=== PATIENT | female | born 1975 | race Caucasian/White ===

== ENCOUNTER 2021-05-02 12:46 | Emergency (ER) | payer OTHER, SELFPAY ==
[~2021-05-02] VITALS: Ht 157.5 cm; Wt 94.8 kg
[~2021-05-02 12:46] MED LIST: APIX5TAB PO
[2021-05-02 12:54] VITALS: BP 129/85
--- NOTE | 2021-05-02 13:12 | NUR ---
US AT BEDSIDE
--- NOTE | 2021-05-02 13:40 | NUR ---
RECEIVED 45 Y/O FEMALE IN BED 6, C/O DIZZINESS WITH VAGINAL BLEEDING, LARGE CLOTS WITH CRAMPING 5/10 X5DAYS. PT STATES SHE IS FEELING INCREASINGLY DIZZY AND WEAK. DENIES FEVER/CHILLS. PMH: ASTHMA, BLOOD CLOTS RX: JOHNATHAN JOHNSTON
[2021-05-02 14:03] LABS: BASOPHILS # (AUTO) 0.1 K/uL (0.00-0.22); BASOPHILS % (AUTO) 1.1 % (0.0-2.0); EOSINOPHILS # (AUTO) 0.5 K/uL (0-0.4); EOSINOPHILS % (AUTO) 5.7 % (0.0-4.0); HEMOGLOBIN 10.8 g/dL (12.0-16.0); LYMPHOCYTES # (AUTO) 2.7 K/uL (2.5-16.5); LYMPHOCYTES % (AUTO) 30.1 % (20.5-51.1); MEAN CORPUSCULAR HEMOGLOBIN 25 pg (27-31); MEAN CORPUSCULAR HGB CONC 33 g/dL (33-37); MEAN CORPUSCULAR VOLUME 75.4 fL (80-94); MONOCYTES # (AUTO) 0.6 K/uL (0.8-1.0); MONOCYTES % (AUTO) 6.3 % (1.7-9.3); NEUTROPHILS # (AUTO) 5.1 K/uL (1.8-7.7); NEUTROPHILS % (AUTO) 56.8 % (42.2-75.2); PLATELET COUNT (AUTO) 423 K/uL (140-450); RED BLOOD CELL COUNT(AUTO) 4.37 MIL/uL (4.20-5.40); RED CELL DISTRIBUTION WIDTH 15.8 % (11.6-13.7)
[2021-05-02 14:26] LABS: ALBUMIN 3.4 g/dL (3.4-5.0); ANION GAP 13.2 (8-16); CARBON DIOXIDE 24.7 mmol/L (21-32); CREATININE 0.7 mg/dL (0.6-1.3); POTASSIUM 3.9 mmol/L (3.5-5.1); TOTAL BILIRUBIN 0.3 mg/dL (0.0-1.0)
[2021-05-02 14:33] LABS: PROTHROMBIN TIME 9.8 secs (10.8-13.4)
--- NOTE | 2021-05-02 15:08 | NUR ---
EVALUATING PATIENT AT BEDSIDE
--- NOTE | 2021-05-02 15:18 | NUR ---
PELVIC SETUP AT BEDSIDE
--- NOTE | 2021-05-02 15:55 | NUR ---
CHAPERONED DR. BIRD DURING PELVIC EXAM.
--- NOTE | 2021-05-02 16:05 | NUR ---
OB STUDENTS FROM DR BOX OFFICE AT BEDSIDE FOR PT EVAL.
[2021-05-02 16:40] VITALS: BP 131/91
--- NOTE | 2021-05-02 16:40 | NUR ---
Patient discharged with v/s stable. Written and verbal after care instructions given and explained. Patient verbalized understanding. Ambulatory with steady gait. All questions addressed prior to discharge. Advised to follow up with PMD.
== END 2021-05-02 16:40 | disposition home or self-care (01) ==
LOC: MED 12:46
DX: N93.8 Other specified abnormal uterine and vaginal bleeding (principal); T50.995A Adverse effect of other drugs, medicaments and biological substances, initial encounter; R42 Dizziness and giddiness; J45.909 Unspecified asthma, uncomplicated; Z79.899 Other long term (current) drug therapy; Y92.89 Other specified places as the place of occurrence of the external cause
CPT/HCPCS: 36415; 76830; 80053; 81002; 81025; 83690; 85025; 85610; 85730; 99285; Q0092

== ENCOUNTER 2021-08-06 17:12 | Emergency (ER) | payer OTHER ==
[~2021-08-06] VITALS: Ht 160 cm; Wt 90.8 kg
[2021-08-06 17:28] VITALS: BP 124/93
[2021-08-06] MEDS ORDERED: ONDANSETRON 4 MG/2 ML VIAL IVP ONE (18:05)
[2021-08-06] MEDS ORDERED: NACL 0.9% 1,000 ML IV ONE (18:05)
[2021-08-06 18:22] LABS: BASOPHILS # (AUTO) 0.1 K/uL (0.00-0.22); BASOPHILS % (AUTO) 0.5 % (0.0-2.0); EOSINOPHILS # (AUTO) 0.5 K/uL (0-0.4); EOSINOPHILS % (AUTO) 4.3 % (0.0-4.0); HEMATOCRIT 42.3 % (36-48); HEMOGLOBIN 14.1 g/dL (12.0-16.0); LYMPHOCYTES # (AUTO) 2.8 K/uL (2.5-16.5); LYMPHOCYTES % (AUTO) 23.7 % (20.5-51.1); MEAN CORPUSCULAR HEMOGLOBIN 27 pg (27-31); MEAN CORPUSCULAR HGB CONC 33 g/dL (33-37); MEAN CORPUSCULAR VOLUME 81.1 fL (80-94); MONOCYTES % (AUTO) 8.5 % (1.7-9.3); NEUTROPHILS # (AUTO) 7.5 K/uL (1.8-7.7); PLATELET COUNT (AUTO) 420 K/uL (140-450); RED BLOOD CELL COUNT(AUTO) 5.22 MIL/uL (4.20-5.40); WHITE BLOOD COUNT (AUTO) 11.9 K/uL (4.8-10.8)
[2021-08-06 18:42] LABS: ALBUMIN 3.7 g/dL (3.4-5.0); ANION GAP 14.2 (8-16); CARBON DIOXIDE 23.3 mmol/L (21-32); CREATININE 0.8 mg/dL (0.6-1.3); MAGNESIUM 2.1 mg/dL (1.8-2.4); POTASSIUM 3.5 mmol/L (3.5-5.1); TOTAL BILIRUBIN 0.2 mg/dL (0.0-1.0)
[2021-08-06] MEDS ORDERED: DICYCLOMINE 10 MG CAP PO ONE (19:10)
[2021-08-06] MEDS ORDERED: BEN10 PO (19:26)
[2021-08-06] MEDS ORDERED: ONDA-188 PO (19:26)
[2021-08-06] MEDS ORDERED: FAMO-90 PO (19:28)
== END 2021-08-06 19:53 | disposition home or self-care (01) ==
LOC: MED 17:12
DX: K52.9 Noninfective gastroenteritis and colitis, unspecified (principal); E86.0 Dehydration; J45.909 Unspecified asthma, uncomplicated; Z98.890 Other specified postprocedural states; Z79.899 Other long term (current) drug therapy; Z79.01 Long term (current) use of anticoagulants
CPT/HCPCS: 36415; 80053; 81002; 81025; 83735; 85025; 96361; 96374; 99283; J2405; J7030

== ENCOUNTER 2022-11-25 19:54 | Emergency (ER) | payer OTHER ==
[~2022-11-25] VITALS: Ht 160 cm; Wt 90.7 kg
[~2022-11-25 19:54] MED LIST changes: +BEN10 PO; +FAMO-90 PO; +ONDA-188 PO
[2022-11-25 20:09] VITALS: BP 142/78; PULSE 68; RESP 16; TEMP 96; O2SAT 95
[2022-11-25 20:30] VITALS: TEMP 96
[2022-11-25 20:50] LABS: BASOPHILS # (AUTO) 0.1 K/uL (0.00-0.22); BASOPHILS % (AUTO) 0.7 % (0.0-2.0); EOSINOPHILS # (AUTO) 0.5 K/uL (0-0.4); EOSINOPHILS % (AUTO) 6.2 % (0.0-4.0); HEMATOCRIT 42.9 % (36-48); HEMOGLOBIN 14.6 g/dL (12.0-16.0); LYMPHOCYTES # (AUTO) 3.4 K/uL (2.5-16.5); LYMPHOCYTES % (AUTO) 41.2 % (20.5-51.1); MEAN CORPUSCULAR HEMOGLOBIN 30 pg (27-31); MEAN CORPUSCULAR HGB CONC 34 g/dL (33-37); MEAN CORPUSCULAR VOLUME 88.4 fL (80-94); MONOCYTES # (AUTO) 0.8 K/uL (0.8-1.0); MONOCYTES % (AUTO) 9.2 % (1.7-9.3); NEUTROPHILS # (AUTO) 3.5 K/uL (1.8-7.7); NEUTROPHILS % (AUTO) 42.7 % (42.2-75.2); PLATELET COUNT (AUTO) 323 K/uL (140-450); RED BLOOD CELL COUNT(AUTO) 4.85 MIL/uL (4.20-5.40); RED CELL DISTRIBUTION WIDTH 13.1 % (11.6-13.7); WHITE BLOOD COUNT (AUTO) 8.2 K/uL (4.8-10.8)
[2022-11-25] MEDS ORDERED: ALBUTEROL SULFATE/IPRATROPIU 3 ML SOL IH ONE (20:50)
[2022-11-25 20:56] VITALS: PULSE 97; RESP 18; O2SAT 99
[2022-11-25 21:13] LABS: ALANINE AMINOTRANSFERASE 32 U/L (12-78); ALBUMIN 3.8 g/dL (3.4-5.0); ALKALINE PHOSPHATASE 137 U/L (50-136); ANION GAP 12.9 (8-16); ASPARTATE AMINOTRANSFERASE 22 U/L (15-37); CALCIUM 8.9 mg/dL (8.5-10.1); CARBON DIOXIDE 25.9 mmol/L (21-32); CHLORIDE 104 mmol/L (98-107); CREATININE 0.9 mg/dL (0.6-1.3); GFR ARICAN-AMERICAN 86 mL/min (>90); GFR NON ARICAN-AMERICAN 71 mL/min (>90); GLUCOSE 92 mg/dL (74-106); POTASSIUM 3.8 mmol/L (3.5-5.1); SODIUM SERUM 139 mmol/L (136-145); TOTAL BILIRUBIN 0.2 mg/dL (0.0-1.0); TOTAL PROTEIN, SERUM 7.9 g/dL (6.4-8.2); UREA NITROGEN, BLOOD 12 mg/dL (7-18)
[2022-11-25] MEDS ORDERED: ALBU0.0912 INH (22:16)
[2022-11-25] MEDS ORDERED: PRED20TA5 PO (22:16)
[2022-11-25] MEDS ORDERED: AZIT250T4 PO (22:16)
[2022-11-25] MEDS ORDERED: DOXY-690 PO (22:16)
[2022-11-25 22:30] VITALS: BP 113/75; PULSE 97; RESP 18; O2SAT 98
== END 2022-11-25 22:30 | disposition home or self-care (01) ==
LOC: MED 19:54
DX: J18.9 Pneumonia, unspecified organism (principal); J45.901 Unspecified asthma with (acute) exacerbation; Z79.899 Other long term (current) drug therapy
CPT/HCPCS: 36415; 71045; 80053; 84484; 85025; 85379; 93005; 94640; 99285; Q0092

== ENCOUNTER 2023-05-23 13:54 | Emergency (ER) | payer OTHER ==
[~2023-05-23] VITALS: Ht 160 cm; Wt 96.7 kg
[~2023-05-23 13:54] MED LIST changes: +ALBU0.0912 INH; +AZIT250T4 PO; +DOXY-690 PO; +PRED20TA5 PO
[2023-05-23 14:11] VITALS: BP 129/94; PULSE 76; RESP 18; TEMP 97.1; O2SAT 97
[2023-05-23 14:51] LABS: BASOPHILS # (AUTO) 0.1 K/uL (0.00-0.22); BASOPHILS % (AUTO) 1.2 % (0.0-2.0); EOSINOPHILS # (AUTO) 0.5 K/uL (0-0.4); EOSINOPHILS % (AUTO) 5.5 % (0.0-4.0); HEMATOCRIT 38.9 % (36-48); HEMOGLOBIN 13.7 g/dL (12.0-16.0); LYMPHOCYTES # (AUTO) 3.6 K/uL (2.5-16.5); LYMPHOCYTES % (AUTO) 36.6 % (20.5-51.1); MEAN CORPUSCULAR HEMOGLOBIN 30 pg (27-31); MEAN CORPUSCULAR HGB CONC 35 g/dL (33-37); MEAN CORPUSCULAR VOLUME 86.1 fL (80-94); MONOCYTES # (AUTO) 0.5 K/uL (0.8-1.0); MONOCYTES % (AUTO) 5.3 % (1.7-9.3); NEUTROPHILS % (AUTO) 51.4 % (42.2-75.2); PLATELET COUNT (AUTO) 323 K/uL (140-450); RED BLOOD CELL COUNT(AUTO) 4.52 MIL/uL (4.20-5.40); WHITE BLOOD COUNT (AUTO) 9.7 K/uL (4.8-10.8)
[2023-05-23] MEDS: ALUMINUM HYD/MAG/SIMETHICONE 30 ML UDC PO ONE (14:59)
[2023-05-23] MEDS: FAMOTIDINE 20 MG TAB PO ONE (14:59)
[2023-05-23] MEDS: MECLIZINE 25 MG TAB PO ONE (15:00)
[2023-05-23 15:08] LABS: ANION GAP 16.5 (8-16); CALCIUM 8.9 mg/dL (8.5-10.1); CARBON DIOXIDE 24.2 mmol/L (21-32); CREATININE 0.7 mg/dL (0.6-1.3); POTASSIUM 3.7 mmol/L (3.5-5.1)
[2023-05-23 15:18] LABS: ALANINE AMINOTRANSFERASE 22 U/L (12-78); ALBUMIN 3.4 g/dL (3.4-5.0); ALKALINE PHOSPHATASE 129 U/L (50-136); ASPARTATE AMINOTRANSFERASE 18 U/L (15-37); BILIRUBIN,DIRECT 0.1 mg/dL (0.0-0.3); TOTAL BILIRUBIN 0.3 mg/dL (0.0-1.0); TOTAL PROTEIN, SERUM 8.4 g/dL (6.4-8.2)
[2023-05-23] MEDS ORDERED: MECL-303 PO (15:30)
[2023-05-23 15:35] VITALS: BP 117/87; PULSE 81; RESP 17; O2SAT 96
== END 2023-05-23 15:35 | disposition home or self-care (01) ==
LOC: MED 13:54
DX: R42 Dizziness and giddiness (principal); R07.9 Chest pain, unspecified; R11.0 Nausea; J45.909 Unspecified asthma, uncomplicated; E78.5 Hyperlipidemia, unspecified; Z90.710 Acquired absence of both cervix and uterus; Z79.899 Other long term (current) drug therapy; Z79.01 Long term (current) use of anticoagulants
CPT/HCPCS: 36415; 71045; 80048; 80076; 81002; 81025; 84484; 85025; 93005; 99285; J8597